=== PATIENT | female | born 1950 | race Caucasian/White ===

== ENCOUNTER 2023-10-18 13:55 | Emergency (ER) | payer MEDICARE, SELFPAY ==
[2023-10-18] VITALS (45 sets, daily range): BP systolic 82–137; BP diastolic 48–86; PULSE 49–76; RESP 12–18; TEMP 36.1–36.7; O2SAT 89–98; BMI 27.4
--- NOTE | 2023-10-18 14:27 | CRLHL7_ITS ---
For Patients: As a result of the Century Cures Act, medical imaging exams and procedure reports are released immediately into your electronic medical record. You may view this report before your referring provider. If you have questions, please contact your health care provider. INDICATION: Chest pain. TECHNIQUE: Chest 1 views. COMPARISON: None. FINDINGS: Cardiovascular and mediastinum: Cardiomegaly. Tortuous aorta. Lungs and pleural spaces: Lungs are clear. No sign of infiltrate or mass. No sign of pleural effusion. No pneumothorax. Bones and soft tissues: No significant findings. IMPRESSION: Cardiomegaly. No acute or significant findings. Dictated by Blake Grajeda MD @ 10/18/2023 3:14:55 PM (Electronically Signed)
[2023-10-18 14:43] LABS: Basophils Absolute Auto 0.03 K/uL (0.00-0.30); Basophils Percent Auto 0.6 % (0.0-3.0); Eosinophils Absolute Auto 0.08 K/uL (0.00-0.50); Eosinophils Percent Auto 1.7 % (0.0-7.0); Hematocrit 27.5 % (33.0-51.0); Immature Granulocytes Abs Auto 0.01 K/uL (0.00-0.30); Immature Granulocytes Pct Auto 0.2 %; Lymphocytes Absolute Auto 1.54 K/uL (0.90-2.90); Lymphocytes Percent Auto 32.6 % (20-44); Mean Corpuscular HGB Conc 33 gm/dL (32-36); Mean Corpuscular Hemoglobin 33 pg (26-34); Mean Corpuscular Volume 101 fL (80-100); Monocytes Percent Auto 8.1 % (0.0-11.0); Neutrophils Absolute Auto 2.68 K/uL (1.7-7.0); Neutrophils Percent Auto 56.8 % (42.0-72.0); Platelet Count* 357 K/uL (140-440); RDW Coefficient of Variation % 13.4 % (11.5-15.5); Red Blood Count 2.73 m/uL (4.00-5.20); White Blood Count* 4.72 K/uL (4.50-11.00)
[2023-10-18 14:59] LABS: Albumin* 4.1 g/dL (3.3-5.0); Chloride* 102 mmol/L (96-114)
[2023-10-18 15:00] LABS: Potassium* 3.7 mmol/L (3.6-5.1); Slide Review Reflex No; Sodium* 133 mmol/L (135-149)
[2023-10-18 15:02] LABS: Alkaline Phosphatase* 68 U/L (40-150); Anion Gap 5 mEq/L (7-15); Aspartate Amino Transferase* 22 U/L (12-35); Bilirubin Direct* 0.3 mg/dL (0.0-0.5); Bilirubin Total* 0.5 mg/dL (0.1-1.5); Blood Urea Nitrogen* 11 mg/dL (7-30); Carbon Dioxide* 26 mmol/L (20-32); Creatinine* 0.8 mg/dL (0.5-1.5); Est. Creatinine Clearance* 52.05; Estimated Glomerular Filt Rate 79 ml/min; Total Protein* 6.2 g/dL (6.0-8.3)
[2023-10-18 15:03] LABS: Alanine Aminotransferase* 18 U/L (4-35); Glucose* 110 mg/dL (60-115); Magnesium* 1.9 mg/dL (1.5-2.6)
[2023-10-18] MEDS: 0.9 % SODIUM CHLORIDE 1000 ml 1,000 ML IV (15:11)
[2023-10-18 15:15] LABS: C Reactive Protein* < 0.5 mg/dL (0.5-1.0); NT Pro B Type NatriureticPept* 186 pg/mL
[2023-10-18 15:49] LABS: D Dimer Quantitative* 0.86 ug/ml (0.00-0.50)
[2023-10-18] MEDS: ASPIRIN 81 MG TAB.CHEW 324 MG PO (15:49)
[2023-10-18 16:15] LABS: Fecal Occult Blood* Negative (Negative)
[2023-10-18 16:55] LABS: Basophils Percent Auto 0.3 % (0.0-3.0); Eosinophils Percent Auto 1.1 % (0.0-7.0); Hematocrit 24.2 % (33.0-51.0); Lymphocytes Percent Auto 35.7 % (20-44); Mean Corpuscular HGB Conc 33 gm/dL (32-36); Mean Corpuscular Hemoglobin 33 pg (26-34); Mean Corpuscular Volume 102 fL (80-100); Monocytes Percent Auto 6.5 % (0.0-11.0); Neutrophils Percent Auto 56.4 % (42.0-72.0); Platelet Count* 283 K/uL (140-440); RDW Coefficient of Variation % 13.6 % (11.5-15.5); Red Blood Count 2.37 m/uL (4.00-5.20); White Blood Count* 3.67 K/uL (4.50-11.00)
[2023-10-18 16:58] LABS: Hemoglobin* 7.9 gm/dL (12.0-16.0)
--- NOTE | 2023-10-18 17:05 | ED.GENADULT ---
HPI - General Adult General Date Seen: 10/18/23 <Erica Ceja MD - Last Filed: 10/21/23 08:03> Chief complaint: Chest Pain <Erica Ceja MD - Last Filed: 10/21/23 08:03> Stated complaint: High chest pain, dizzy, diff breath, colonoscopy <Erica Ceja MD - Last Filed: 10/21/23 08:03> Time Seen by Provider: 10/18/23 14:15 <Erica Ceja MD - Last Filed: 10/21/23 08:03> Source: patient <Erica Ceja MD - Last Filed: 10/21/23 08:03> Mode of arrival: ambulatory <Erica Ceja MD - Last Filed: 10/21/23 08:03> Limitations: no limitations <Erica Ceja MD - Last Filed: 10/21/23 08:03> History of Present Illness HPI narrative: Patient is a 73-year-old woman here for evaluation of chest pain, dizziness and shortness of breath. She notes that a week ago she had a colonoscopy and had 9 biopsies. After the colonoscopy she says that she had about 5 days of bright red blood per rectum associated with clots. Starting the day after the procedure, she started to get this tightness in her upper chest with ambulation. She says she feels okay at rest although she still feels kind of dizzy at rest. The chest pain has consistently shown up however any time she tries to walk. This is new for her, she has no prior history of any cardiac symptoms or diagnoses. She has never had a stress test, stent, mi or surgery. She has not had palpitations, she has not fainted. The blood per rectum seems to have stopped and she has had some normal bowel movements since then. She has not had abdominal pain or vomiting. She has not had pleuritic chest pain, no fever cough, no unusual leg pain or swelling. She does not smoke. She has a 66-year-old brother who a few years ago had a stent. <Erica Ceja MD - Last Filed: 10/21/23 08:03> Related Data Home medications: Home Medications ?Medication ?Instructions ?Recorded ?Confirmed amlodipine 5 mg tablet 5 mg PO DAILY 10/18/23 10/18/23 hydrochlorothiazide 25 mg tablet 25 mg PO DAILY 10/18/23 10/18/23 levothyroxine 125 mcg tablet 125 mcg PO DAILY 10/18/23 10/18/23 (Euthyrox) lisinopril 40 mg tablet 40 mg PO DAILY 10/18/23 10/18/23 <Erica Ceja MD - Last Filed: 10/21/23 08:03> Allergies/adverse reactions: Allergies Allergy/AdvReac Type Severity Reaction Status Date / Time No Known Drug Allergies Allergy Verified 10/18/23 14:04 <Erica Ceja MD - Last Filed: 10/21/23 08:03> Review of Systems Status of ROS: Reports: 10 or more systems reviewed and unremarkable except as noted in History and below <Erica Ceja MD - Last Filed: 10/21/23 08:03> [facility] Social History: Social History Smoking Status: Never smoker How often do you have a drink containing alcohol: 4 or more times a week How many standard drinks containing alcohol do you have on a typical day: 3 or 4 How often do you have six or more drinks on one occasion: Never AUDIT-C Alcohol total score: 5 Non-prescribed substance use: denies use <Erica Ceja MD - Last Filed: 10/21/23 08:03> Exam Narrative: Exam Narrative: Vital signs as noted above. In general, an alert, well-appearing patient. Head: Normocephalic, atraumatic. Eyes: Pupils are equal reactive. Extraocular movements are full. Conjunctivae are normal. ENT: Mucous membranes are moist. Throat is normal. Neck: Supple without lymphadenopathy. Heart: Regular rate and rhythm. No murmur or rub. Lungs: Clear bilaterally. No increased work of breathing, crackles or wheezes. Abdomen: Soft and nontender. No organomegaly. Rectal: No masses, small amount of stool in the vault, dark brown in color. Extremities: Well perfused. No edema. No calf tenderness. Pulses intact. Neurologic: Patient is alert and oriented to person and place. Speech is fluent. Face is symmetric. Moves all extremities equally. Affect: Normal. Skin: Warm and dry. Well perfused. <Erica Ceja MD - Last Filed: 10/21/23 08:03> Const: Vital Signs, click to edit/add: Vital Signs - 24 hr 10/18/23 13:59 10/18/23 14:27 10/18/23 14:37 Temperature 97.0 F L Pulse Rate 71 Pulse Rate [Right Pulse Oximeter] 75 Respiratory Rate 18 Blood Pressure 101/67 Blood Pressure [Ri ght Upper Arm] 124/72 Pulse Oximetry 97 98 98 Oxygen Delivery Me thod Room Air 10/18/23 15:02 10/18/23 15:03 10/18/23 15:07 Temperature Pulse Rate 76 71 56 L Pulse Rate [Right Pulse Oximeter] Respiratory Rate Blood Pressure 82/58 L 83/60 L 82/57 L Blood Pressure [Ri ght Upper Arm] Pulse Oximetry 96 98 97 Oxygen Delivery Me thod 10/18/23 15:10 10/18/23 15:15 10/18/23 15:16 Temperature Pulse Rate 61 56 L 56 L Pulse Rate [Right Pulse Oximeter] Respiratory Rate Blood Pressure 91/56 L 83/58 L Blood Pressure [Ri ght Upper Arm] Pulse Oximetry 97 97 95 Oxygen Delivery Me thod 10/18/23 15:30 10/18/23 15:32 10/18/23 15:36 Temperature Pulse Rate 59 L 53 L 58 L Pulse Rate [Right Pulse Oximeter] Respiratory Rate Blood Pressure 101/64 111/70 Blood Pressure [Ri ght Upper Arm] Pulse Oximetry 95 98 89 Oxygen Delivery Me thod 10/18/23 15:37 10/18/23 15:45 10/18/23 15:50 Temperature Pulse Rate 53 L 50 L Pulse Rate [Right Pulse Oximeter] Respiratory Rate 16 Blood Pressure Blood Pressure [Ri ght Upper Arm] Pulse Oximetry 98 97 Oxygen Delivery Me thod 10/18/23 15:50 10/18/23 16:02 10/18/23 16:17 Temperature Pulse Rate 69 49 L 50 L Pulse Rate [Right Pulse Oximeter] Respiratory Rate Blood Pressure 107/73 113/67 107/78 Blood Pressure [Ri ght Upper Arm] Pulse Oximetry 96 97 98 Oxygen Delivery Me thod 10/18/23 16:25 10/18/23 16:31 10/18/23 17:01 Temperature Pulse Rate 71 57 L Pulse Rate [Right Pulse Oximeter] Respiratory Rate Blood Pressure 112/69 128/86 127/80 Blood Pressure [Ri ght Upper Arm] Pulse Oximetry 97 98 Oxygen Delivery Me thod 10/18/23 17:15 10/18/23 17:32 10/18/23 18:02 Temperature Pulse Rate 52 L Pulse Rate [Right Pulse Oximeter] Respiratory Rate Blood Pressure 110/83 104/72 Blood Pressure [Ri ght Upper Arm] Pulse Oximetry 94 Oxygen Delivery Me thod 10/18/23 18:47 10/18/23 18:48 10/18/23 19:00 Temperature Pulse Rate 61 61 61 Pulse Rate [Right Pulse Oximeter] Respiratory Rate Blood Pressure 120/75 Blood Pressure [Ri ght Upper Arm] Pulse Oximetry 97 95 96 Oxygen Delivery Me thod 10/18/23 19:15 10/18/23 19:30 10/18/23 19:32 Temperature 97.9 F Pulse Rate 60 56 L 55 L Pulse Rate [Right Pulse Oximeter] Respiratory Rate 16 Blood Pressure 110/70 110/70 Blood Pressure [Ri ght Upper Arm] Pulse Oximetry 94 95 96 Oxygen Delivery Me thod 10/18/23 19:53 10/18/23 19:55 10/18/23 20:02 Temperature 97.6 F Pulse Rate 51 L 54 L 63 Pulse Rate [Right Pulse Oximeter] Respiratory Rate 12 12 Blood Pressure 120/75 120/75 114/73 Blood Pressure [Ri ght Upper Arm] Pulse Oximetry 98 95 92 Oxygen Delivery Me thod 10/18/23 20:30 10/18/23 20:37 10/18/23 20:38 Temperature 97.7 F 97.7 F Pulse Rate 60 51 L 51 L Pulse Rate [Right Pulse Oximeter] Respiratory Rate 12 12 Blood Pressure 133/75 133/75 Blood Pressure [Ri ght Upper Arm] Pulse Oximetry 98 98 98 Oxygen Delivery Me thod 10/18/23 20:39 10/18/23 20:45 10/18/23 21:02 Temperature Pulse Rate 55 L 55 L 55 L Pulse Rate [Right Pulse Oximeter] Respiratory Rate Blood Pressure 133/75 123/48 L Blood Pressure [Ri ght Upper Arm] Pulse Oximetry 95 95 97 Oxygen Delivery Me thod 10/18/23 21:15 10/18/23 21:32 07/03/24 21:33 Temperature Pulse Rate 51 L 54 L 51 L Pulse Rate [Right Pulse Oximeter] Respiratory Rate Blood Pressure 128/71 Blood Pressure [Ri ght Upper Arm] Pulse Oximetry 96 96 90 Oxygen Delivery Me thod 10/18/23 21:38 10/18/23 21:41 Temperature 98.0 F Pulse Rate 53 L 51 L Pulse Rate [Right Pulse Oximeter] Respiratory Rate 12 12 Blood Pressure 123/78 123/78 Blood Pressure [Ri ght Upper Arm] Pulse Oximetry 98 96 Oxygen Delivery Me thod <Erica Ceja MD - Last Filed: 10/21/23 08:03> Vital Signs, click to edit/add: Vital Signs - 24 hr 10/18/23 13:59 10/18/23 14:27 10/18/23 14:37 Temperature 97.0 F L Pulse Rate 71 Pulse Rate [Right Pulse Oximeter] 75 Respiratory Rate 18 Blood Pressure 101/67 Blood Pressure [Ri ght Upper Arm] 124/72 Pulse Oximetry 97 98 [facility] 10/18/23 15:02 10/18/23 15:03 10/18/23 15:07 Temperature Pulse Rate 76 71 56 L Pulse Rate [Right Pulse Oximeter] Respiratory Rate Blood Pressure 82/58 L 83/60 L 82/57 L Blood Pressure [Ri ght Upper Arm] Pulse Oximetry 96 98 97 [facility] 10/18/23 15:10 10/18/23 15:15 10/18/23 15:16 Temperature Pulse Rate 61 56 L 56 L Pulse Rate [Right Pulse Oximeter] Respiratory Rate Blood Pressure 91/56 L 83/58 L Blood Pressure [Ri ght Upper Arm] Pulse Oximetry 97 97 95 [facility] 10/18/23 15:30 10/18/23 15:32 10/18/23 15:36 Temperature Pulse Rate 59 L 53 L 58 L Pulse Rate [Right Pulse Oximeter] Respiratory Rate Blood Pressure 101/64 111/70 Blood Pressure [Ri ght Upper Arm] Pulse Oximetry 95 98 89 Oxygen Delivery Ma thod 10/18/23 15:37 10/18/23 15:45 10/18/23 15:50 Temperature Pulse Rate 53 L 50 L Pulse Rate [Right Pulse Oximeter] Respiratory Rate 16 Blood Pressure Blood Pressure [Ri ght Upper Arm] Pulse Oximetry 98 97 [facility] 10/18/23 15:50 10/18/23 16:02 10/18/23 16:17 Temperature Pulse Rate 69 49 L 50 L Pulse Rate [Right Pulse Oximeter] Respiratory Rate Blood Pressure 107/73 113/67 107/78 Blood Pressure [Ri ght Upper Arm] Pulse Oximetry 96 97 98 Oxygen Delivery Me thod 10/18/23 16:25 10/18/23 16:31 10/18/23 17:01 Temperature Pulse Rate 71 57 L Pulse Rate [Right Pulse Oximeter] Respiratory Rate Blood Pressure 112/69 128/86 127/80 Blood Pressure [Ri ght Upper Arm] Pulse Oximetry 97 98 Oxygen Delivery Me thod 10/18/23 17:15 10/18/23 17:32 10/18/23 18:02 Temperature Pulse Rate 52 L Pulse Rate [Right Pulse Oximeter] Respiratory Rate Blood Pressure 110/83 104/72 Blood Pressure [Ri ght Upper Arm] Pulse Oximetry 94 Oxygen Delivery Ma thod 10/18/23 18:47 10/18/23 18:48 10/18/23 19:00 Temperature Pulse Rate 61 61 61 Pulse Rate [Right Pulse Oximeter] Respiratory Rate Blood Pressure 120/75 Blood Pressure [Ri ght Upper Arm] Pulse Oximetry 97 95 96 Oxygen Delivery Ma thod 10/18/23 19:15 10/18/23 19:30 10/18/23 19:32 Temperature 97.9 F Pulse Rate 60 56 L 55 L Pulse Rate [Right Pulse Oximeter] Respiratory Rate 16 Blood Pressure 110/70 110/70 Blood Pressure [Ri ght Upper Arm] Pulse Oximetry 94 95 96 Oxygen Delivery Ma thod 10/18/23 19:53 10/18/23 19:55 10/18/23 20:02 Temperature 97.6 F Pulse Rate 51 L 54 L 63 Pulse Rate [Right Pulse Oximeter] Respiratory Rate 12 12 Blood Pressure 120/75 120/75 114/73 Blood Pressure [Ri ght Upper Arm] Pulse Oximetry 98 95 92 Oxygen Delivery Ma thod 10/18/23 20:30 10/18/23 20:37 10/18/23 20:38 Temperature 97.7 F 97.7 F Pulse Rate 60 51 L 51 L Pulse Rate [Right Pulse Oximeter] Respiratory Rate 12 12 Blood Pressure 133/75 133/75 Blood Pressure [Ri ght Upper Arm] Pulse Oximetry 98 98 98 Oxygen Delivery Me thod 10/18/23 20:39 10/18/23 20:45 10/18/23 21:02 Temperature Pulse Rate 55 L 55 L 55 L Pulse Rate [Right Pulse Oximeter] Respiratory Rate Blood Pressure 133/75 123/48 L Blood Pressure [Ri ght Upper Arm] Pulse Oximetry 95 95 97 Oxygen Delivery Me thod 10/18/23 21:15 10/18/23 21:32 10/18/23 21:33 Temperature Pulse Rate 51 L 54 L 51 L Pulse Rate [Right Pulse Oximeter] Respiratory Rate Blood Pressure 128/71 Blood Pressure [Ri ght Upper Arm] Pulse Oximetry 96 96 90 Oxygen Delivery Me thod 10/18/23 21:38 10/18/23 21:41 Temperature 98.0 F Pulse Rate 53 L 51 L Pulse Rate [Right Pulse Oximeter] Respiratory Rate 12 12 Blood Pressure 123/78 123/78 Blood Pressure [Ri ght Upper Arm] Pulse Oximetry 98 96 Oxygen Delivery Me thod <Luis E Michelle MD - Last Filed: 10/18/23 21:52> Course Course ED Course: Following initial evaluation, patient had an EKG. By my review this shows a sinus rhythm, ventricular rate of 89. Poor R-wave progression. No acute ST segment changes an unremarkable T-waves. An IV was placed. She did have some blood pressures that were low in the 80s and 90s and she had a L of normal saline. Fecal occult blood was negative, but certainly sounds as if she had significant blood loss last week. Labs are notable for an initial hemoglobin of 9. Initial troponin was 0. Metabolic panel fairly unremarkable, sodium is 133, BUN creatinine are normal. LFTs unremarkable, CRP less than 0.5. TSH was 1.2. Her D-dimer was mildly elevated for age at 0.86, however my suspicion for pulmonary embolism is quite low, her symptoms are very much exertional, and started after GI blood loss. I do think it is possible this represents angina, possibly unmasked by her acute anemia. It is reassuring that she is not having any current GI blood loss. Will check a 2 hour troponin. Her heart score is 5 placing her in the moderate risk category. I have discussed all this with her, tomorrow is a holiday, and then it is the weekend, we are not going to be able to get a stress test as an inpatient. After fluids, her hemoglobin is 7.9. I discussed possible transfusion with her, I do think if she has some underlying cardiac disease this would be beneficial for her, particularly given that she would prefer to be discharged. We reviewed risks and benefits of transfusion, she ultimately agreed to proceed with that. Plan will be for transfusion of a unit of blood, recheck troponin at 2 hours and 4 hours, and if this remains undetectable, will assess whether not she is still symptomatic with ambulation. If so, would push for admission. Case discussed with Dr. Pabon, Cardiology at [facility], who agrees that if she remains symptomatic with exertion despite transfusion, she should be heparinized and admitted. If her symptoms are resolved after unit of blood that I think she could conceivably go home with close outpatient follow-up and stress testing. <Erica Ceja MD - Last Filed: 10/21/23 08:03> Vital Signs Vital signs: Initial Vital Signs Temperature 97.0 F L 10/18/23 13:59 Temperature Source Temporal Artery Scan 10/18/23 13:59 Pulse Rate 75 10/18/23 13:59 Respiratory Rate 18 10/18/23 13:59 Blood Pressure 124/72 10/18/23 13:59 Blood Pressure Mean 89 10/18/23 13:59 Blood Pressure Position Sitting 10/18/23 13:59 Pulse Oximetry 97 10/18/23 13:59 Oxygen Delivery Method Room Air 10/18/23 13:59 Vital Signs Temperature 97.0 F L 10/18/23 13:59 Pulse Rate 75 10/18/23 13:59 Respiratory Rate 18 10/18/23 13:59 Blood Pressure 124/72 10/18/23 13:59 Pulse Oximetry 97 10/18/23 13:59 Oxygen Delivery Method Room Air 10/18/23 13:59 Temperature 97.6 F 10/18/23 22:08 Pulse Rate 58 L 10/18/23 22:08 Respiratory Rate 12 10/18/23 22:08 Blood Pressure 137/80 10/18/23 22:08 Pulse Oximetry 96 10/18/23 22:08 Oxygen Delivery Method Room Air 10/18/23 13:59 <Erica Ceja MD - Last Filed: 10/21/23 08:03> Initial Vital Signs Temperature 97.0 F L 10/18/23 13:59 Temperature Source Temporal Artery Scan 10/18/23 13:59 Pulse Rate 75 10/18/23 13:59 Respiratory Rate 18 10/18/23 13:59 Blood Pressure 124/72 10/18/23 13:59 Blood Pressure Mean 89 10/18/23 13:59 Blood Pressure Position Sitting 10/18/23 13:59 Pulse Oximetry 97 10/18/23 13:59 Oxygen Delivery Method Room Air 10/18/23 13:59 Vital Signs Temperature 97.0 F L 10/18/23 13:59 Pulse Rate 75 10/18/23 13:59 Respiratory Rate 18 10/18/23 13:59 Blood Pressure 124/72 10/18/23 13:59 Pulse Oximetry 97 10/18/23 13:59 Oxygen Delivery Method Room Air 10/18/23 13:59 Temperature 97.6 F 10/18/23 22:08 Pulse Rate 58 L 10/18/23 22:08 Respiratory Rate 12 10/18/23 22:08 Blood Pressure 137/80 10/18/23 22:08 Pulse Oximetry 96 10/18/23 22:08 Oxygen Delivery Method Room Air 10/18/23 13:59 <Luis E Michelle MD - Last Filed: 10/18/23 21:52> Medications Administered Medications: Discontinued Medications Generic Name Dose Route Start Last Admin Trade Name Freq PRN Reason Stop Dose Admin Aspirin 324 mg 10/18/23 14:26 10/18/23 15:49 Aspirin 81 Mg Tab.Chew PO 10/18/23 14:27 324 mg ONCE ONE Administration Sodium Chloride 1,000 mls @ 1,000 mls/hr 10/18/23 15:15 10/18/23 16:35 0.9 % Sodium Chloride 1000 Ml IV 10/18/23 16:14 Infused .Q1H [facility] Infusion <Erica Ceja MD - Last Filed: 10/21/23 08:03> Discontinued Medications Generic Name Dose Route Start Last Admin Trade Name Freq PRN Reason Stop Dose Admin Aspirin 324 mg 10/18/23 14:26 10/18/23 15:49 Aspirin 81 Mg Tab.Chew PO 10/18/23 14:27 324 mg ONCE ONE Administration Sodium Chloride 1,000 mls @ 1,000 mls/hr 10/18/23 15:15 10/18/23 16:35 0.9 % Sodium Chloride 1000 Ml IV 10/18/23 16:14 Infused .Q1H [facility] Infusion <Luis E Michelle MD - Last Filed: 10/18/23 21:52> Medical Decision Making MDM Narrative Medical decision making narrative: Addendum 9:52 p.m.. The patient was able ambulate without any difficulty, without any chest pain or other concern. She will be discharged home per Dr. Guadarrama plan. <Luis E Michelle MD - Last Filed: 10/18/23 21:52> Lab Data Labs: Lab Results 10/18/23 10/18/23 10/18/23 Range/Units 14:20 14:28 15:36 WBC 4.72 (4.50-11.00) K/uL RBC 2.73 L (4.00-5.20) m/uL Hgb 9.0 L (12.0-16.0) gm/dL Hct 27.5 L (33.0-51.0) % MCV 101 H (80-100) fL MCH 33 (26-34) pg MCHC 33 (32-36) gm/dL RDW Coeff of Nuria 13.4 (11.5-15.5) % Plt Count 357 (140-440) K/uL Neut % (Auto) 56.8 (42.0-72.0) % Lymph % (Auto) 32.6 (20-44) % Phelps % (Auto) 8.1 (0.0-11.0) % Eos % (Auto) 1.7 (0.0-7.0) % Baso % (Auto) 0.6 (0.0-3.0) % Neut # (Auto) 2.68 (1.7-7.0) K/uL Lymph # (Auto) 1.54 (0.90-2.90) K/uL Phelps # (Auto) 0.40 (0.00-0.90) K/UL Eos # (Auto) 0.08 (0.00-0.50) K/uL Baso # (Auto) 0.03 (0.00-0.30) K/uL Abs Immat Gran (auto) 0.01 (0.00-0.30) K/uL Imm/Tot Granulo (auto) 0.2 % D-Dimer Quant (PE/DVT) 0.86 H (0.00-0.50) ug/ml Sodium 133 L (135-149) mmol/L Potassium 3.7 (3.6-5.1) mmol/L Chloride 102 (96-114) mmol/L Carbon Dioxide 26 (20-32) mmol/L Anion Gap 5 L (7-15) mEq/L BUN 11 (7-30) mg/dL Creatinine 0.8 (0.5-1.5) mg/dL Estimated Creat Clear 52.05 Estimated GFR 79 ml/min Glucose 110 (60-115) mg/dL Calcium 10.0 (8.4-10.6) mg/dL Magnesium 1.9 (1.5-2.6) mg/dL Total Bilirubin 0.5 (0.1-1.5) mg/dL Direct Bilirubin 0.3 (0.0-0.5) mg/dL AST 22 (12-35) U/L ALT 18 (4-35) U/L Alkaline Phosphatase 68 (40-150) U/L Troponin I (0.01-0.04) ng/mL C-Reactive Protein < 0.5 L (0.5-1.0) mg/dL NT-Pro-B Natriuret Pep 186 pg/mL Total Protein 6.2 (6.0-8.3) g/dL Albumin 4.1 (3.3-5.0) g/dL TSH 1.280 (0.270-4.200) uIU/mL Stool Occult Blood Negative (Negative) POC Troponin I 0.00 L (0.01-0.04) ng/ml Blood Type Antibody Screen Crossmatch (AHG) 10/18/23 10/18/23 Range/Units 16:48 20:30 WBC 3.67 L (4.50-11.00) K/uL RBC 2.37 L (4.00-5.20) m/uL Hgb 7.9 L* (12.0-16.0) gm/dL Hct 24.2 L (33.0-51.0) % MCV 102 H (80-100) fL MCH 33 (26-34) pg MCHC 33 (32-36) gm/dL RDW Coeff of Nuria 13.6 (11.5-15.5) % Plt Count 283 (140-440) K/uL Neut % (Auto) 56.4 (42.0-72.0) % Lymph % (Auto) 35.7 (20-44) % Phelps % (Auto) 6.5 (0.0-11.0) % Eos % (Auto) 1.1 (0.0-7.0) % Baso % (Auto) 0.3 (0.0-3.0) % Neut # (Auto) 2.10 (1.7-7.0) K/uL Lymph # (Auto) 1.30 (0.90-2.90) K/uL Phelps # (Auto) 0.20 (0.00-0.90) K/UL Eos # (Auto) 0.00 (0.00-0.50) K/uL Baso # (Auto) 0.00 (0.00-0.30) K/uL Abs Immat Gran (auto) 0.00 (0.00-0.30) K/uL Imm/Tot Granulo (auto) 0.0 % D-Dimer Quant (PE/DVT) (0.00-0.50) ug/ml Sodium (135-149) mmol/L Potassium (3.6-5.1) mmol/L Chloride (96-114) mmol/L Carbon Dioxide (20-32) mmol/L Anion Gap (7-15) mEq/L BUN (7-30) mg/dL Creatinine (0.5-1.5) mg/dL Estimated Creat Clear Estimated GFR ml/min Glucose (60-115) mg/dL Calcium (8.4-10.6) mg/dL Magnesium (1.5-2.6) mg/dL Total Bilirubin (0.1-1.5) mg/dL Direct Bilirubin (0.0-0.5) mg/dL AST (12-35) U/L ALT (4-35) U/L Alkaline Phosphatase (40-150) U/L Troponin I < 0.01 L < 0.01 L (0.01-0.04) ng/mL C-Reactive Protein (0.5-1.0) mg/dL NT-Pro-B Natriuret Pep pg/mL Total Protein (6.0-8.3) g/dL Albumin (3.3-5.0) g/dL TSH (0.270-4.200) uIU/mL Stool Occult Blood (Negative) POC Troponin I (0.01-0.04) ng/ml Blood Type O Positive Antibody Screen NEGATIVE Crossmatch (AHG) See Detail <Erica Ceja MD - Last Filed: 10/21/23 08:03> Lab Results 10/18/23 10/18/23 10/18/23 Range/Units 14:20 14:28 15:36 WBC 4.72 (4.50-11.00) K/uL RBC 2.73 L (4.00-5.20) m/uL Hgb 9.0 L (12.0-16.0) gm/dL Hct 27.5 L (33.0-51.0) % MCV 101 H (80-100) fL MCH 33 (26-34) pg MCHC 33 (32-36) gm/dL RDW Coeff of Nuria 13.4 (11.5-15.5) % Plt Count 357 (140-440) K/uL Neut % (Auto) 56.8 (42.0-72.0) % Lymph % (Auto) 32.6 (20-44) % Phelps % (Auto) 8.1 (0.0-11.0) % Eos % (Auto) 1.7 (0.0-7.0) % Baso % (Auto) 0.6 (0.0-3.0) % Neut # (Auto) 2.68 (1.7-7.0) K/uL Lymph # (Auto) 1.54 (0.90-2.90) K/uL Phelps # (Auto) 0.40 (0.00-0.90) K/UL Eos # (Auto) 0.08 (0.00-0.50) K/uL Baso # (Auto) 0.03 (0.00-0.30) K/uL Abs Immat Gran (auto) 0.01 (0.00-0.30) K/uL Imm/Tot Granulo (auto) 0.2 % D-Dimer Quant (PE/DVT) 0.86 H (0.00-0.50) ug/ml Sodium 133 L (135-149) mmol/L Potassium 3.7 (3.6-5.1) mmol/L Chloride 102 (96-114) mmol/L Carbon Dioxide 26 (20-32) mmol/L Anion Gap 5 L (7-15) mEq/L BUN 11 (7-30) mg/dL Creatinine 0.8 (0.5-1.5) mg/dL Estimated Creat Clear 52.05 Estimated GFR 79 ml/min Glucose 110 (60-115) mg/dL Calcium 10.0 (8.4-10.6) mg/dL Magnesium 1.9 (1.5-2.6) mg/dL Total Bilirubin 0.5 (0.1-1.5) mg/dL Direct Bilirubin 0.3 (0.0-0.5) mg/dL AST 22 (12-35) U/L ALT 18 (4-35) U/L Alkaline Phosphatase 68 (40-150) U/L Troponin I (0.01-0.04) ng/mL C-Reactive Protein < 0.5 L (0.5-1.0) mg/dL NT-Pro-B Natriuret Pep 186 pg/mL Total Protein 6.2 (6.0-8.3) g/dL Albumin 4.1 (3.3-5.0) g/dL TSH 1.280 (0.270-4.200) uIU/mL Stool Occult Blood Negative (Negative) POC Troponin I 0.00 L (0.01-0.04) ng/ml Blood Type Antibody Screen Crossmatch (AHG) 10/18/23 10/18/23 Range/Units 16:48 20:30 WBC 3.67 L (4.50-11.00) K/uL RBC 2.37 L (4.00-5.20) m/uL Hgb 7.9 L* (12.0-16.0) gm/dL Hct 24.2 L (33.0-51.0) % MCV 102 H (80-100) fL MCH 33 (26-34) pg MCHC 33 (32-36) gm/dL RDW Coeff of Nuria 13.6 (11.5-15.5) % Plt Count 283 (140-440) K/uL Neut % (Auto) 56.4 (42.0-72.0) % Lymph % (Auto) 35.7 (20-44) % Phelps % (Auto) 6.5 (0.0-11.0) % Eos % (Auto) 1.1 (0.0-7.0) % Baso % (Auto) 0.3 (0.0-3.0) % Neut # (Auto) 2.10 (1.7-7.0) K/uL Lymph # (Auto) 1.30 (0.90-2.90) K/uL Phelps # (Auto) 0.20 (0.00-0.90) K/UL Eos # (Auto) 0.00 (0.00-0.50) K/uL Baso # (Auto) 0.00 (0.00-0.30) K/uL Abs Immat Gran (auto) 0.00 (0.00-0.30) K/uL Imm/Tot Granulo (auto) 0.0 % D-Dimer Quant (PE/DVT) (0.00-0.50) ug/ml Sodium (135-149) mmol/L Potassium (3.6-5.1) mmol/L Chloride (96-114) mmol/L Carbon Dioxide (20-32) mmol/L Anion Gap (7-15) mEq/L BUN (7-30) mg/dL Creatinine (0.5-1.5) mg/dL Estimated Creat Clear Estimated GFR ml/min Glucose (60-115) mg/dL Calcium (8.4-10.6) mg/dL Magnesium (1.5-2.6) mg/dL Total Bilirubin (0.1-1.5) mg/dL Direct Bilirubin (0.0-0.5) mg/dL AST (12-35) U/L ALT (4-35) U/L Alkaline Phosphatase (40-150) U/L Troponin I < 0.01 L < 0.01 L (0.01-0.04) ng/mL C-Reactive Protein (0.5-1.0) mg/dL NT-Pro-B Natriuret Pep pg/mL Total Protein (6.0-8.3) g/dL Albumin (3.3-5.0) g/dL TSH (0.270-4.200) uIU/mL Stool Occult Blood (Negative) POC Troponin I (0.01-0.04) ng/ml Blood Type O Positive Antibody Screen NEGATIVE Crossmatch (AHG) See Detail <Luis E Michelle MD - Last Filed: 10/18/23 21:52> Discharge Plan Discharge Clinical Impression: Chest pain, Anemia, History of GI bleed <Erica Ceja MD - Last Filed: 10/21/23 08:03> Patient Disposition: Home, Self-Care <Erica Ceja MD - Last Filed: 10/21/23 08:03> Condition: Improved <Erica Ceja MD - Last Filed: 10/21/23 08:03> Instructions: Chest Pain (DC), Anemia (ED) <Erica Ceja MD - Last Filed: 10/21/23 08:03> Additional Instructions: If you have any escalation your symptoms, pain at rest, pain that does not resolve with rest, recurrent bleeding, lightheadedness or fainting, or any other worsening, return immediately to the emergency department by 911. Otherwise, we will arrange for an outpatient stress test. You should follow-up with your [facility] provider following the stress test to discuss results. <Erica Ceja MD - Last Filed: 10/21/23 08:03> Prescriptions: No Action lisinopril 40 mg tablet 40 mg PO DAILY hydrochlorothiazide 25 mg tablet 25 mg PO DAILY levothyroxine [Euthyrox] 125 mcg tablet 125 mcg PO DAILY amlodipine 5 mg tablet 5 mg PO DAILY <Erica Ceja MD - Last Filed: 10/21/23 08:03> Follow Up/Referrals: Katie Perrin, [Primary Care Provider] - <Erica Ceja MD - Last Filed: 10/21/23 08:03> Stand Alone Forms: [employer] [facility] Info Instructions <Erica Ceja MD - Last Filed: 10/21/23 08:03>
[2023-10-18 17:35] LABS: Troponin I* < 0.01 ng/mL (0.01-0.04)
[2023-10-18 21:28] LABS: Troponin I* < 0.01 ng/mL (0.01-0.04)
[2023-10-19 05:01] LABS: Slide Review Reflex No
== END 2023-10-18 22:19 | disposition home or self-care (01) ==
PROVIDERS: Emergency Provider Emergency Medicine; PCP Family Medicine
DX: R07.9 Chest pain, unspecified (principal); D64.9 Anemia, unspecified
CPT/HCPCS: 36415; 36430; 71045; 80048; 80076; 82270; 83735; 83880; 84443; 84484; 85025; 85379; 86140; 86850; 86900; 86901; 86922; 93005; 94761; 99284; 99285; A9270; J7030; P9016

== ENCOUNTER 2023-10-24 08:45 | Outpatient (CLI) | payer MEDICARE, SELFPAY ==
[2023-10-24] MEDS: SODIUM CHLORIDE 0.9 % (FLUSH) 10 ML SYRINGE IVF (10:04)
[2023-10-24] MEDS: REGADENOSON 0.4 MG/5 ML SYRINGE IVP (10:04)
[2023-10-24 10:56] VITALS: BP 164/89; PULSE 67
--- NOTE | 2023-10-24 11:09 | P.STN_ITS ---
Stress Test Note Date Date Seen: 10/24/23 Date of test: 10/24/23 Providers Referring provider: Erica Ceja Primary care provider: Katie Perrin Stress test physician: Helena Hardy Stress Test Note Stress test ordered: Lexiscan Indication for test: Exertional chest pain Stress test medicine: Lexiscan Results discussion: Resting EKG: Sinus rhythm, 60 beats per minute. Significant artifact. Premature atrial complex seen. Resting blood pressure: 132/86 Stress test: Patient was consented on stress test ordered in agreed to proceed. She had a nonwalking Lexiscan. Just under 2 minutes in to the testing after administration of the regadenoson, patient started having recurrence of her upper chest pain just below her anterior neck. Pain did improve and was gone by the end of recovery phase. She did have some inferior EKG changes and lateral precordial leads V4 through V6 suggestive but not diagnostic of ischemia. At the termination of the EKG portion of this test, patient had no symptoms, stated she felt better was back to baseline. She did not become hypotensive, had a maximum blood pressure 167/101. Patient will have post stress nuclear images obtained to couple this for a full formal diagnostic. Impression: Subjectively positive, objectively suggestive of inferior ischemia on EKG tracings. Follow up suggested: Patient has not scheduled a post ER follow-up, does need hemoglobin recheck from that. Have requested that she schedule with her primary clinic which is [facility] this week. She can have her hemoglobin rechecked after recent transfusion from acute blood loss and have her stress test report given to her. She is aware to return to the ER if she has further exertional pain that does not go away immediately with rest. She should not stress herself with any activity that should provoke this level of symptoms in the interim.
== END 2023-10-24 08:46 | disposition home or self-care (01) ==
PROVIDERS: PCP Family Medicine; Visit Provider Family Medicine
DX: R07.89 Other chest pain (principal); I25.9 Chronic ischemic heart disease, unspecified
CPT/HCPCS: 78452; 93016; 93017; A9500; J2785

== ENCOUNTER 2024-09-30 13:22 | Emergency (ER) | payer MEDICARE, OTHER, SELFPAY ==
[2024-09-30 13:26] VITALS: BP 150/84; PULSE 95; RESP 16; TEMP 36; O2SAT 95; BMI 25.5
--- OUTSIDE RECORDS SUMMARY | 2024-09-30 13:26 | XMS_ITS | Clinical Summary ---
Author Organization [employer] [facility] Address [address] [place] [id number] Care Team Providers Care White Metal Caster Name Role Phone Katie Perrin DO Primary Care Provider [phone] Allergies Active Allergy Reactions Criticality Noted Date Comments Ciprofloxacin *Unknown 08/23/2024 Avoid fluoroquinolone antibiotics in view of ascending aorta aneurysm Medications nitroglycerin (NITROSTAT) 0.4 mg sublingual tabletIndications: Abnormal stress test,Chest pain in adult Place 1 Tablet (0.4 mg) under the tongue every 5 minutes if needed for Chest Pain. Up to 3 tablets in 15 minutes. 25 Tablet 4 Active furosemide (LASIX) 20 mg tabletIndications: S/P CABG (coronary artery bypass graft) Take 1 Tablet (20 mg) by mouth once daily in the morning. 90 Tablet 3 4 Active rosuvastatin (CRESTOR) 20 mg tabletIndications: Hyperlipidemia, unspecified hyperlipidemia type Take 1 Tablet (20 mg) by mouth at bedtime. 90 Tablet 3 5 Active levothyroxine (SYNTHROID) 125 mcg tabletIndications: Hypothyroidism, unspecified type Take 1 Tablet (125 mcg) by mouth once daily. 90 Tablet 3 5 Active aspirin chewable 81 mg chewable tabletIndications: S/P CABG x 3 Chew 1 Tablet (81 mg) by mouth once daily. 100 Tablet 5 5 Active metoprolol succinate (Toprol XL) 50 mg sustained-release tabletIndications: Hx of CABG Take 1 Tablet (50 mg) by mouth once daily. 90 Tablet 3 5 Active metoprolol succinate 25 mg Sustained-Release tabletIndications: Hypertension Take 1 Tablet (25 mg) by mouth once daily. 90 Tablet 5 Active metoprolol succinate (TOPROL XL) 25 mg Sustained-Release tabletIndications: Ischemic cardiomyopathy Take 1 Tablet (25 mg) by mouth once daily. 30 Tablet 1 5 09/24/19 25 Discontin ued(Reord er (E-cancel not sent)) Active Problems Problem Noted Date Diagnosed Date Atrial fibrillation with RVR 01/30/2024 Pleural effusion on left 01/30/2024 S/P CABG x 3 01/02/2024 01/02/2024 Overview (01/02/2024): Coronary artery bypass grafting x 3 (FREIRE-LAD, SVG-PDA, SVG-OM) with Dr. Edwards on 01/02/24 S/P ascending aortic aneurysm repair 01/02/2024 01/02/2024 Overview (01/02/2024): Aorta- GRAFT VASC [id number] VASCUTEK GELWEAVE STRAIGHT BY [employer], Ref:[id number], SN:[id number], Exp:09-14-2026, implanted by Dr. Edwards on 01-02-2024 Coagulopathy 01/02/2024 ASHD (arteriosclerotic heart disease) 12/29/2023 Overview (12/29/2023): - 10/24/23 NM Stress Test: Myocardial perfusion was abnormal. There was a small area of moderate ischemia involving the apical segments. - 11/28/23 CCTA: 1) Significant ASCVD - severe stenosis of the proximal LAD (>70%) - moderate disease throughout the RCA with subtotal distal RCA stenosis FFRct* - Distal right coronary artery SOUND MIXER. - No significant flow limitation at the significantly stenosed proximal LAD stenosis. - Lateral diagonal branch FFR abnormality also noted - angiogram 12/29/23 Urinary incontinence 11/27/2023 Colon polyp 10/16/2023 Overview (10/16/2023): Colonoscopy 09/2023 4-TA, repeat in 5 years PAC (premature atrial contraction) 10/20/2022 Overview (10/20/2022): Every about 6 beats at rest seen on EKG Primary osteoarthritis of left knee 07/24/2020 Overview (07/24/2020): July 2020: Dr. Abernathy cortisone injection to left knee. Chronic pain of right ankle 07/24/2020 Overview (07/24/2020): 2014L: left ankle fusion Surgery. Essential hypertension 04/13/2020 Posterior knee pain, left 08/08/2018 Overview (08/08/2018): July 2018: Dr. Sue ultrasound aspiration of Diehl's cyst and cortisone injection. Routine adult health maintenance 09/17/2013 Overview (09/17/2013): Colonoscopy 09/2013 normal repeat in 10 years Hypothyroid 07/02/2013 Hypertension Resolved Problems Problem Noted Date Diagnosed Date Resolved Date Paroxysmal atrial fibrillation 01/18/2024 02/23/2024 Anticoagulation monitoring, INR range 2-3 01/18/2024 02/23/2024 Acute blood loss anemia 01/02/202406/2023 Abnormal stress test 11/27/2023 025 Encounters Date Type Department Care Team Description 09/23/2024 Refill [facility] [address] [place] [address] Katie Perrin DO Refill Request (Metoprolol ER 25mg TAB) 08/23/2024 3:00 PM CDT Office Visit [facility] [address] [place] [phone] Castillo Higgins MD Follow Up (Follow up CAD ) 08/23/2024 Travel from Last 3 Months Immunizations Immunization Administration Dates Next Due COVID-19 vaccine ([employer] 30mcg/0.3mL) 12YO+ RAGHU-SUCROSE COLIN MOSLEY 09/15/2021 COVID-19 vaccine ([facility] [employer] 30mcg/0.3mL) PF, MDV 06/27/2020,06/06/2020 Influenza, High-dose Inactivated 12/26/2023,03/17 Influenza, High-dose Quadriv alent Inactivated 01/19/2023,03/15/2021 Influenza, IIV3 (Age 6-35 mos) 03/06/2013 Influenza, IIV3 (Age >=3 years) 03/01/2013 Influenza, IIV4 03/16/2016,2015,01/15/2014 Influenza, Inactivated AIIV4 (Age 65+ Years) Preserv Free 01/13/2022,03/13/2020 Influenza, Inactivated IIV3 (Age 65+ Years) Preserv Free 04/02/2018 Pneumococcal Poly,23-Valent (Pneumovax) 04/02/20 18 Pneumococcal conj 13-Valent (Prevnar 13) 016 Td (Age >=7 Years) 04/25/2003 Tdap 09/15/2021,12/03/2011 Zoster (Shingrix-RZV, recombinant) 11/02/2018, Zoster (Zostavax-ZVL, live) 11/06/2013 Family History Medical History Relation Name Comments Cancer Brother Caleb bladder Cancer Father of leukemi a Cancer-breast Mother at age 86 , had CVA Cancer-ovarian No Family History Relation Name Status Comments Brother Caleb Father Mother Social History Tobacco Use Types Packs/Day Years Used Date Smoking Tobacco: Never Passive Smoke Exposure: Never Smokeless Tobacco: Never Tobacco Cessation:Counseling Given: Yes Alcohol Use Standard Drinks/Week Comments Yes 0 (1 standard drink = 0.6 oz pur e alcohol) a beer daily PHQ-2 Answer Date Recorded PHQ-2 TOTAL SCORE 0 05/09/2024 Social Connections Answer Date Recorded Do you often feel lonely or isolated from those around you? 0 01/30/2024 Alcohol Use Answer Date Recorded How often do you have a drink containing alcohol ? 3 04/05/2021 How many drinks containing a lcohol do you have on a typical day when you are drinking? 0 04/05/2021 How often do you have five or more drinks on one occasion? 0 04/05/2021 Financial Resource Strain Answer Date R ecorded Difficulty of Paying Living Expenses 3 05/05/2023 Difficulty of Paying Living Expenses Not on file 05/05/2023 Food Insecurity Answer Date Recorded Do you worry your food will run out before you are able to buy more? 1 01/30/2024 Transportation Needs Answer Date Record ed Does lack of transportation keep you from medica l appointments? 1 01/30/2024 Does lack of transportation keep you from work, meetings or getting things that you need? 1 01/30/2024 Housing Stability Answer Date Recorded What is your housing situation today? 1 01/30/2024 Interpersonal Safety Answer Date Record ed Are you being hit, kicked, p ushed or yelled at (see row info)? No 02/21/2024 Interpersonal Safety Abuse 12 - 18 Not on file 02/21/2024 Interpersonal Safety Ambulatory Vulnerability No t on file 02/21/2024 Utilities Answer Date Recorded Do you have trouble paying f or utilities (for example, heat, electricity, water, phone)? 1 01/30/2024 Comments No Sex and Gender Information Value Date Recorded Sex Assigned at Female 01/30/2024 9:49 AM CDT Legal Sex Female 3:55 PM ADMINISTRATOR PESTICIDE Gender Identity Female 01/30/2024 9:49 AM CDT Sexual Orientation Straight 01/30/2024 9: 49 AM CDT Occupation Industry Job Start Date Job End Date disabled Not on file Not on file Not on file Obstetrics History Last Filed Vital Signs Vital Sign Reading Time Taken Comments Blood Pressure 152/92 08/23/2024 2:45 PM CDT Pulse 83 08/23/2024 2:45 PM CDT Temperature 36.5 C (97.7 F) 02/21/2024 12:49 PM ADMINISTRATOR PESTICIDE Respiratory Rate 16 02/21/2024 12:49 PM ADMINISTRATOR PESTICIDE Oxygen Saturation 95% 08/23/2024 2:45 PM CDT Inhaled Oxygen Concentration - - Weight 77.2 kg (170 lb 1.6 oz) 08/23/2024 2:45 P M CDT Height 171.5 cm (5' 7.52) 04/16/2024 11:[address] Body Mass Index 26.23 04/16/2024 11:28 AM ADMINISTRATOR PESTICIDE Plan of Treatment Health Maintenance Due Date Last Done Comments Hepatitis C screening for age 18-79 1970 RSV vaccine for adults or (1 - Risk 60-74 years 1-dose series) 2012 COVID-19 vaccine series (2023- season) 2024 12/26/2023, 08/08/2023, 01/19/2023, Additional history exists Mammogram for age 45-75 11/26/2024 11/27/19, 10/20/2022, 04/16/2018, Additional history exists Medicare Wellness for age 65+ 11/27/2024 11/27/2023, 10/20/2022, 10/20/2022, Additional history exists BMI (ht and wt on same day) for age 18+ 04/16/2025 04/16/2024, 11/27/2023, 05/05/2023, Additional history exists Depression screening for age 12+ 05/09/2025 05/09/2024, 05/08/2024, 02/02/2024, Additional history exists Colonoscopy through age 75 10/09/202810/09, 10/10/2023, 10/10/2023, Additional history exists Lipids for age 45-75 12/29/2028 12/30/2023, 11/21/2023, 04/19/2023, Additional history exists Tetanus booster 09/16/2031 09/15/2021, 11/15, 04/25/2003 DEXA/DXA scan for age 65+ Completed 03/30/2017 Pneumococcal series for age 50+ Completed 04/02/2018, 03/16/2016 Zoster (shingles) series for age 50+ Completed 11/02/2018, 08/15/2018, 11/06/2013 Tdap Completed 09/15/2021, 12/03/2011 Influenza Vaccine Completed 12/26/2023, , 03/13/2020, Additional history exists Hepatitis B series for 19+ Aged Out N o longer eligible based on patient's age to complete this topic Medical Devices Implanted Type Area Road Worker Device Identifier Shelf Expiration Date Model / Serial / Lot Graft Vasc [id number] [facility] - [id number] Implanted:Qty: 1 on 01/02/2024 by Grace Live, Kristopher Womack MD at [facility] N/A: [employer] 09/14/2026 [id number] / [id number] / Description:Aorta- GRAFT VAS C [id number] VASCUTEK GELWEAVE STRAIGHT BY [employer], Ref:[id number], SN:[id number], Exp:09-14-2026, implanted by Dr. Edwards on 01-02-2024 Procedures Procedure Name Priority Date/Time Associated Diagnosis Comments LIPID PANEL Early AM 12/30/2023 6:51 AM CDT XR MAMMO OPAL BILAT SCREEN Routine 11/27/2023 10:50 AM CDT Visit for screening mammogram COLONOSCOPY SCREENING Routine 10/10/2023 1:14 PM CDT Screening for colon cancer XR DXA BONE DENSITY 2 SITES AXIAL Routine 03/30/2017 9:00 AM ADMINISTRATOR PESTICIDE Menopause from Last 3 Months or Most Recently Relevant to Health Maintenance Results * Lipid Panel - In AM (12/30/2023 6:51 AM CDT) CHOLESTEROL,TOTAL 161 100 - 199 mg/dL 12/30/2023 7:35 AM CDT [facility] Comment: Cholesterol, Total Reference Ranges Desirable <200 mg/dL Borderline 200-239 mg/dL High >=240 mg/dL TRIGLYCERIDES 66 <150 mg/dL 12/30/2023 7:35 AM CDT [facility] HDL CHOLESTEROL 62 >40 mg/dL 7:35 AM CDT [facility] NON-HDL CHOLESTEROL 99 <145 mg/dl 12/30/2023 7:35 AM CDT [facility] CHOL/HDL RATIO 2.60 <4.50 12/30/2023 7:35 AM CDT [facility] LDL CHOLESTEROL 86 <=130 mg/dL 12/30/2023 7:35 AM CDT [facility] VLDL CHOLESTEROL 13 <=30 mg/dL 12/30/2023 7:35 AM CDT [facility] PROVIDER ORDERED STATUS RANDOM 12/30/2023 7:35 AM CDT [facility] Blood BLOOD SPECIMEN / Unknown Venipuncture / Unknown 12/30/2023 6:51 AM CDT 12/30/2023 7:05 AM CDT Hasmukh HEWITTBS CHEMISTRY Jossy l Result [facility] [address] [place] [address], [place] * XR MAMMO OPAL BILAT SCREEN (11/27/2023 10:50 AM CDT) Anatomical Region Laterality Modality BREASTS, Breast Left, Breast Right Bilateral Mammography Impressions 11/27/2023 2:45 PM CDT There is no radiographic evidence for malignancy. Recommend annual mammograms. MAMMOGRAM ASSESSMENT: ACR 1 Negative PATIENTS: You will also receive a letter with your examination results in an easy to read format. If you have questions about your results, please contact your referring provider. Narrative 11/27/2023 2:45 PM CDT For Patients: As a result of the Century Cures Act, medical imaging exams and procedure reports are released immediately into your electronic medical record. You may view this report before your referring provider. If you have questions, please contact your health care provider. XR MAMMO OPAL BILAT SCREEN [[id number]] CLINICAL HISTORY: This is an asymptomatic 73 y.o. patient. INDICATION FOR EXAM: Mammogram Screening. TECHNIQUE: CC & MLO views were obtained. This study was evaluated with the assistance of Computer-Aided Detection. Breast Tomosynthesis was used in interpretation. COMPARISON FILM: Yes 10/20/22 [employer] 04/16/18 [facility] FINDINGS: The breasts are almost entirely fatty. There are no dominant masses, suspicious micro calcifications or areas of architectural distortion. Katie Perrin DO MAMMO Final Resu lt * COLONOSCOPY (10/10/2023 1:26 PM CDT) 10/10/2023 1:26 PM CDT Narrative Transcriptions Anam Mcdermott MD - 10/10/2023 2:55 PM CDT Patient Name: Ignacia Ames Procedure Date: 10/10/2023 Gender: Female Date of : 1950 Admit Type: Outpatient Procedure: Colonoscopy Proceduralist: Anam Mcdermott MD , Ele Lin (Nurse), Sun Beatty RN (Nurse) Referring MD: Katie Perrin Indications/Pre-Op Diagnosis: Screening for colorectal malignant neoplasm, Last colonoscopy: September 2013 Medications: Fentanyl 100 micrograms IV, Midazolam 2 mgIV, The level of sedation administered wasmoderate Procedure Description: The patient had risks, benefits and alternatives explained to andgave informed consent. The patient had a stable cardiopulmonary status and judged an adequate candidate for conscious sedation. The endoscope [id number] was passed through the anus andadvanced to the cecum, identified by appendiceal orifice and ileocecal valve.The colonoscopy was performed without difficulty. The patient toleratedthe procedure well. The quality of the bowel preparation was good. The ileocecal valve, appendiceal orifice, and rectum were photographed. Complications: No immediate complications. Estimated Blood Loss & Specimen: Estimated blood loss: none. Specimen collected - Yes and sent to Laboratory Findings: The perianal and digital rectal examinations were normal. Two sessile and semi-pedunculated polyps were found in the ascending colon. The polyps were 3 to 4 mm in size. These polyps were removedwith a cold snare. Resection and retrieval were complete. A 2 mm polyp was found in the ascending colon. The polyp was sessile. The polyp was removed with a cold biopsy forceps. Resection and retrieval were complete. A 3 mm polyp was found in the transverse colon. The polyp wassessile. The polyp was removed with a cold snare. Resection and retrieval were complete. Two sessile polyps were found in the rectum. The polyps were 2 mm in size. These polyps were removed with a cold snare. Resection was complete, but the polyp tissue was not retrieved. The exam was otherwise without abnormality. Impressions/Post-Op Diagnosis: - Two 3 to 4 mm polyps in the ascending colon, removed with a cold snare. Resected and retrieved. - One 2 mm polyp in the ascending colon, removed with a cold biopsy forceps. Resected and retrieved. - One 3 mm polyp in the transverse colon, removed with a cold snare. Resected and retrieved. - Two 2 mm polyps in the rectum, removed with a cold snare. Complete resection. Polyp tissue not retrieved. - The examination was otherwise normal. Recommendation: - Patient has a contact number available for emergencies. The signsand symptoms of potential delayed complications were discussed with the patient. Return to normal activities tomorrow. Written discharge instructions were provided to the patient. - Resume previous diet. - Continue present medications. - Await pathology results. - Repeat colonoscopy date to be determined after pending pathology results are reviewed for surveillance. Moderate Sedation: A time out was performed before the procedure. Moderate (conscious) sedation was administered by the endoscopy nurse and supervised bythe endoscopist. The following parameters were monitored: oxygensaturation, heart rate, blood pressure, EKG, CO2, respiratory rate, adequacy of pulmonary ventilation and reponse to care. Please refer to the patient's medical record flowsheets and nursing notes for moderate sedation details. Total physician intraservice time was 23 minutes. Anam Mcdermott MD 10/10/2023 2:54:56 PM This report has been signed electronically. Note Initiated On: 10/10/2023 1:26 PM Procedure Code(s): --- Professional --- 66297, Colonoscopy, flexible; with removalof tumor(s), polyp(s), or other lesion(s) bysnare technique 69777, 59, Colonoscopy, flexible; withbiopsy, single or multiple Diagnosis Code(s): --- Professional --- Z12.11, Encounter for screening formalignant neoplasm of colon D12.2, Benign neoplasm of ascending colon D12.8, Benign neoplasm of rectum D12.3, Benign neoplasm of transverse colon (hepatic flexure or splenic flexure) CPT copyright 2022 [employer]. All rights reserved. The codes documented in this report are preliminary and upon industrial court magistrate reviewmay be revised to meet current compliance requirements. Scope In: 2:21:22 PM Scope Withdrawal Time 0 hours 12 minutes 50 seconds Scope Out: 2:41:21 PM us Anam Mcdermott MD PROCEDURE ORD Final Res ult * XR DXA BONE DENSITY 2 SITES AXIAL [78650.1] (03/30/2017 9:00 AM ADMINISTRATOR PESTICIDE) Anatomical Region Laterality Modality Spine, HIPS, HIPL, HIPR Other Narrative 04/04/2017 2:27 PM ADMINISTRATOR PESTICIDE Please see scanned document for results of this study. us Kami Thao DO DEXA Final Resul t from Last 3 Months or Most Recently Relevant to Health Maintenance Insurance MEDICARE PART B HB ONLY MEDICARE PART A HB ONLY MEDICA PRIME SOLUTION HB MEDICA PRIME SOLUTIONS MR PB ONLY HC MEDICARE PPS RISK ADMINISTRATIVE SERVICES Advance Directives * Full Code (Latest Code Status on File) Date Activated Date Inactivated Comments 01/30/2024 4:27 PM 02/04/2024 11:08 PM Would lik e to continue discussion on the topic. 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
--- NOTE | 2024-09-30 14:03 | CRLHL7_ITS ---
For Patients: As a result of the Century Cures Act, medical imaging exams and procedure reports are released immediately into your electronic medical record. You may view this report before your referring provider. If you have questions, please contact your health care provider. INDICATION: Headache, neck pain TECHNIQUE: CT head without contrast. COMPARISON: None. FINDINGS: MASS EFFECT AND VENTRICLES: No significant midline shift. The lateral ventricles are symmetric. Basal cisterns patent. No sulcal effacement. The ventricles, cisterns, and other CSF containing spaces are symmetrically prominent secondary to diffuse parenchymal volume loss but are otherwise normal as to shape and position. BRAIN: Diffuse cerebral volume loss. Periventricular and subcortical hypodensities likely secondary to age-related microvascular ischemic changes. No acute infarct or hemorrhage. VASCULAR: No acute abnormalities of the cavernous carotids and vertebral vessels on noncontrast exam. EXTRA-AXIAL: Extra-axial spaces are normal. Metallic fragments along the superior margin of the left sphenoid sinus, which may be related to prior surgery. EXTRA-CRANIAL: No acute calvarial or facial fractures. Sinuses and mastoids are clear. Bilateral lens replacements. IMPRESSION: No acute intracranial abnormality. Please note that all CT scans at this facility use dose modulation, iterative reconstruction, and/or weight-based dosing when appropriate to reduce radiation dose to as low as reasonably achievable. Dictated by Florinda Hernandez MD @ 09/30/2024 3:34:55 PM (Electronically Signed)
--- NOTE | 2024-09-30 14:03 | CRLHL7_ITS ---
For Patients: As a result of the Century Cures Act, medical imaging exams and procedure reports are released immediately into your electronic medical record. You may view this report before your referring provider. If you have questions, please contact your health care provider. CLINICAL HISTORY: Headache, neck pain. TECHNIQUE: Standard helical CT image acquisition through the head following the administration of intravenous contrast was performed. 3D and MIP reconstructions were performed at a separate workstation and permanently archived. COMPARISON: None available. FINDINGS: Intracranial atherosclerotic disease without proximal large vessel occlusion or flow-limiting luminal stenosis. No evidence of cerebral aneurysm. No findings to suggest an arterial-venous shunting lesion. IMPRESSION: No intracranial proximal large vessel occlusion, flow-limiting luminal stenosis, or cerebral aneurysm. Please note that all CT scans at this facility use dose modulation, iterative reconstruction, and/or weight-based dosing when appropriate to reduce radiation dose to as low as reasonably achievable. Dictated by Renato Webber MD @ 10/01/2024 8:02:35 AM (Electronically Signed)
--- NOTE | 2024-09-30 14:03 | CRLHL7_ITS ---
For Patients: As a result of the Century Cures Act, medical imaging exams and procedure reports are released immediately into your electronic medical record. You may view this report before your referring provider. If you have questions, please contact your health care provider. INDICATION: Headache and neck pain. COMPARISON: None available. TECHNIQUE: CTA neck with contrast bolus tracking, 3D angiographic rendering using maximum intensity projection (MIP) and images permanently archived. FINDINGS: The origins of the great vessels are patent. There is carotid atherosclerosis bilaterally. There is atherosclerotic plaque in the proximal right ICA resulting in a mild (<50%) stenosis by NASCET criteria. No significant stenosis of the proximal left ICA. No significant stenosis of right vertebral artery. There is a moderate left vertebral artery origin stenosis. 7mm pulmonary nodule in the left upper lobe, stable since 12/29/2023. IMPRESSION: 1. mild (<50%) stenosis of the proximal right ICA by NASCET criteria. 2. Moderate left vertebral artery origin stenosis. Please note that all CT scans at this facility use dose modulation, iterative reconstruction, and/or weight-based dosing when appropriate to reduce radiation dose to as low as reasonably achievable. Dictated by Renato Webber MD @ 10/01/2024 7:59:23 AM (Electronically Signed)
[2024-09-30 14:21] LABS: Lactate* 0.7 mmol/L (0.5-1.9)
[2024-09-30 14:27] LABS: Basophils Percent Auto 1.1 % (0.0-3.0); Eosinophils Percent Auto 1.3 % (0.0-7.0); Hematocrit 40.4 % (33.0-51.0); Hemoglobin* 13.4 gm/dL (12.0-16.0); Immature Granulocytes Pct Auto 0.3 %; Mean Corpuscular HGB Conc 33 gm/dL (32-36); Mean Corpuscular Hemoglobin 33 pg (26-34); Mean Corpuscular Volume 99 fL (80-100); Monocytes Percent Auto 6.7 % (0.0-11.0); Neutrophils Percent Auto 55.6 % (42.0-72.0); Platelet Count* 204 K/uL (140-440); RDW Coefficient of Variation % 12.8 % (11.5-15.5); White Blood Count* 3.71 K/uL (4.50-11.00)
[2024-09-30] MEDS: fentaNYL 100 MCG/2 ML inj 50 MCG IVP (14:32)
[2024-09-30 14:35] LABS: Slide Review Reflex No
[2024-09-30 14:40] LABS: INR 0.93 (0.91-1.10); Prothrombin Time 13.3 Seconds
[2024-09-30 14:42] LABS: Mono Screen* Negative (Negative)
[2024-09-30 14:47] LABS: Albumin* 3.9 g/dL (3.3-5.0); Chloride* 104 mmol/L (96-114)
[2024-09-30 14:48] LABS: Potassium* 3.5 mmol/L (3.6-5.1); Sodium* 139 mmol/L (135-149)
[2024-09-30 14:50] LABS: Alanine Aminotransferase* 16 U/L (4-35); Alkaline Phosphatase* 86 U/L (40-150); Anion Gap 5 mEq/L (7-15); Aspartate Amino Transferase* 25 U/L (12-35); Bilirubin Direct* 0.1 mg/dL (0.0-0.5); Bilirubin Total* 0.5 mg/dL (0.1-1.5); Blood Urea Nitrogen* 13 mg/dL (7-30); Carbon Dioxide* 30 mmol/L (20-32); Creatinine* 0.8 mg/dL (0.5-1.5); Estimated Glomerular Filt Rate 78 ml/min; Total Protein* 6.6 g/dL (6.0-8.3)
[2024-09-30 14:51] LABS: Calcium* 10.1 mg/dL (8.4-10.6); Glucose* 82 mg/dL (60-115)
[2024-09-30 14:56] LABS: C Reactive Protein* < 0.5 mg/dL (0.5-1.0)
[2024-09-30 15:03] LABS: Troponin I* < 0.01 ng/mL (0.01-0.04)
--- NOTE | 2024-09-30 15:23 | ED.GENADULT ---
HPI - General Adult General Chief complaint: Neck Injury/Pain Stated complaint: Neck pain Time Seen by Provider: 09/30/24 13:42 Source: patient Mode of arrival: ambulatory Limitations: no limitations History of Present Illness HPI narrative: Patient is a 74-year-old female with a history of hypertension, hypothyroidism, and coronary artery disease, presenting with neck pain. States that her neck felt off for few days and then approximately 3 days ago she looked up quickly and felt sharp pain the back of the neck on both sides of the spine. She states that she has been lying in bed for the majority of the weekend because any movement causes her significant discomfort. She feels very nauseated. She feels a little off balance since this happened. She denies vertiginous symptoms. No vomiting. No fevers or chills. She denies changes in her vision, word-finding difficulty or ringing in her ears. She does feel slightly confused. She states that the pain radiates up the head and into the sides of her head. She has tried NSAIDs, acetaminophen, icing/heat and nothing has helped. Related Data Home Medications ?Medication ?Instructions ?Recorded ?Confirmed levothyroxine 125 mcg tablet 125 mcg PO DAILY 10/18/23 09/30/24 (Euthyrox) lisinopril 40 mg tablet 40 mg PO DAILY 10/18/23 09/30/24 aspirin 81 mg tablet,delayed 81 mg PO DAILY 09/30/24 09/30/24 release metoprolol succinate 25 mg 25 mg PO DAILY 09/30/24 09/30/24 tablet,extended release 24 hr Allergies Allergy/AdvReac Type Severity Reaction Status Date / Time No Known Drug Allergies Allergy Verified 10/18/23 14:04 Review of Systems Status of ROS: Reports: 10 or more systems reviewed and unremarkable except as noted in History and below [facility] Social History Smoking Status: Former smoker How often do you have a drink containing alcohol: 4 or more times a week How many standard drinks containing alcohol do you have on a typical day: 1 or 2 How often do you have six or more drinks on one occasion: Never AUDIT-C Alcohol total score: 4 Non-prescribed substance use: denies use Exam Narrative: Exam Narrative: Well-nourished well-developed patient, appears uncomfortable. Alert and oriented. Answers questions appropriately. Mood and affect are appropriate. Thoughts are goal oriented and rational. No tangential or magical thinking noted. Patient speaks in full sentences without needing to catch her breath. HEENT: Normocephalic atraumatic. Asymmetric pupil on the left secondary to an accident many years ago. Extraocular muscles are intact. Conjunctivae are moist without any icterus noted. Moist mucous membranes. Posterior pharynx is normal. Neck is soft without any lymphadenopathy or thyromegaly. No masses are appreciated. Posterior neck appears normal. She has no tenderness to palpation of the cervical spine. She has full range of motion but does cause some discomfort. She has no significant tenderness with palpation of the paraspinal musculature. Cardiovascular: Heart is regular rate and rhythm S1 and S2 are present. Lungs: Clear to auscultation bilaterally no wheezes rhonchi or rales are appreciated. Skin: Well perfused without any obvious rashes. Strength is 5/5 of the upper and lower extremities. Hand track walker is normal and symmetric. Cranial nerves 3-12 are normal. There is no nystagmus either horizontally or vertically. Gait is normal. Const: Vital Signs, click to edit/add: Vital Signs - 24 hr 09/30/24 13:26 Temperature 96.8 F L Pulse Rate [Pulse Oximeter] 95 Respiratory Rate 16 Blood Pressure [Ri ght Upper Arm] 150/84 H Pulse Oximetry 95 Oxygen Delivery Me thod Room Air Course Course ED Course: Differential diagnoses includes musculoskeletal strain, arthritis of the cervical spine, vertebral artery dissection, discitis, migraine headache, tension headache. Head CT was done and was unremarkable. CTA does not show any evidence of dissection. Does show degenerative disease of the cervical spine with disc height loss at C5-C6. Lab work was unremarkable. No evidence of infection or inflammation. Vital Signs Vital signs: Initial Vital Signs Temperature 96.8 F L 09/30/24 13:26 Temperature Source Temporal Artery Scan 09/30/24 13:26 Pulse Rate 95 09/30/24 13:26 Respiratory Rate 16 09/30/24 13:26 Blood Pressure 150/84 H 09/30/24 13:26 Blood Pressure Mean 106 H 09/30/24 13:26 Blood Pressure Position Sitting 09/30/24 13:26 Pulse Oximetry 95 09/30/24 13:26 Oxygen Delivery Method Room Air 09/30/24 13:26 Vital Signs Temperature 96.8 F L 09/30/24 13:26 Pulse Rate 95 09/30/24 13:26 Respiratory Rate 16 09/30/24 13:26 Blood Pressure 150/84 H 09/30/24 13:26 Pulse Oximetry 95 09/30/24 13:26 Oxygen Delivery Method Room Air 09/30/24 13:26 Temperature 96.8 F L 09/30/24 13:26 Pulse Rate 95 09/30/24 13:26 Respiratory Rate 16 09/30/24 13:26 Blood Pressure 150/84 H 09/30/24 13:26 Pulse Oximetry 95 09/30/24 13:26 Oxygen Delivery Method Room Air 09/30/24 13:26 Medications Administered Medications: Discontinued Medications Generic Name Dose Route Start Last Admin Trade Name Cecily PRN Reason Stop Dose Admin Fentanyl 50 mcg 09/30/24 14:03 09/30/24 14:32 Fentanyl 100 Mcg/2 Ml Inj IVP 09/30/24 14:04 50 mcg ONCE ONE Administration Medical Decision Making MDM Narrative Medical decision making narrative: 74-year-old female with neck pain. Likely due to arthritis and loss of disc height. Right now there is no cervical radiculopathy. We discussed pain management follow-up with primary care. Lab Data Lab results reviewed: Yes I reviewed the patient's lab results Labs: Lab Results 09/30/24 Range/Units 14:13 WBC 3.71 L (4.50-11.00) K/uL RBC 4.10 (4.00-5.20) m/uL Hgb 13.4 (12.0-16.0) gm/dL Hct 40.4 (33.0-51.0) % MCV 99 (80-100) fL MCH 33 (26-34) pg MCHC 33 (32-36) gm/dL RDW Coeff of Nuria 12.8 (11.5-15.5) % Plt Count 204 (140-440) K/uL Neut % (Auto) 55.6 (42.0-72.0) % Lymph % (Auto) 35.0 (20-44) % [place] % (Auto) 6.7 (0.0-11.0) % Eos % (Auto) 1.3 (0.0-7.0) % Baso % (Auto) 1.1 (0.0-3.0) % Neut # (Auto) 2.10 (1.7-7.0) K/uL Lymph # (Auto) 1.30 (0.90-2.90) K/uL [place] # (Auto) 0.20 (0.00-0.90) K/UL Eos # (Auto) 0.00 (0.00-0.50) K/uL Baso # (Auto) 0.00 (0.00-0.30) K/uL Abs Immat Gran (auto) 0.00 (0.00-0.30) K/uL Imm/Tot Granulo (auto) 0.3 % INR 0.93 (0.91-1.10) Sodium 139 (135-149) mmol/L Potassium 3.5 L (3.6-5.1) mmol/L Chloride 104 (96-114) mmol/L Carbon Dioxide 30 (20-32) mmol/L Anion Gap 5 L (7-15) mEq/L BUN 13 (7-30) mg/dL Creatinine 0.8 (0.5-1.5) mg/dL Estimated Creat Clear 51.30 Estimated GFR 78 ml/min Glucose 82 (60-115) mg/dL Lactate 0.7 (0.5-1.9) mmol/L Calcium 10.1 (8.4-10.6) mg/dL Magnesium 2.0 (1.5-2.6) mg/dL Total Bilirubin 0.5 (0.1-1.5) mg/dL Direct Bilirubin 0.1 (0.0-0.5) mg/dL AST 25 (12-35) U/L ALT 16 (4-35) U/L Alkaline Phosphatase 86 (40-150) U/L Troponin I < 0.01 (0.01-0.04) ng/mL C-Reactive Protein < 0.5 L (0.5-1.0) mg/dL Total Protein 6.6 (6.0-8.3) g/dL Albumin 3.9 (3.3-5.0) g/dL Procalcitonin < 0.03 L (<0.50) ng/mL Monoscreen Negative (Negative) Imaging Data CT scan - head: Attestation: I have reviewed the pertinent imaging results. Radiologist's impression: TECHNIQUE: CT head without contrast. COMPARISON: None. FINDINGS: MASS EFFECT AND VENTRICLES: No significant midline shift. The lateral ventricles are symmetric. Basal cisterns patent. No sulcal effacement. The ventricles, cisterns, and other CSF containing spaces are symmetrically prominent secondary to diffuse parenchymal volume loss but are otherwise normal as to shape and position. BRAIN: Diffuse cerebral volume loss. Periventricular and subcortical hypodensities likely secondary to age-related microvascular ischemic changes. No acute infarct or hemorrhage. VASCULAR: No acute abnormalities of the cavernous carotids and vertebral vessels on noncontrast exam. EXTRA-AXIAL: Extra-axial spaces are normal. Metallic fragments along the superior margin of the left sphenoid sinus, which may be related to prior surgery. EXTRA-CRANIAL: No acute calvarial or facial fractures. Sinuses and mastoids are clear. Bilateral lens replacements. IMPRESSION: No acute intracranial abnormality. Head neck CTA: Attestation: I have reviewed the pertinent imaging results. Radiologist's impression: CT chest 12/29/2023 IMPRESSION: CTA head: No large vessel occlusion or significant aneurysm. Tortuous basilar artery. CTA neck: No sign of dissection or critical stenosis. Atherosclerosis of the carotid bulbs. Other: Moderate degenerative disease of the cervical spine, with severe disc height loss at C5-C6. There is a 7 millimeter solid pulmonary nodule in the left upper lobe (5/222), stable since 12/29/2023. Consider repeat CT chest in December 2025 to document 2 years of stability. Unless prominently trunk measuring 3.7 centimeters, which can be seen with pulmonary hypertension. Discharge Plan Discharge Clinical Impression: Acute neck pain Patient Disposition: Home, Self-Care Condition: Stable Instructions: Acute Neck Pain (ED) Additional Instructions: Will be sent home with pain medications today these medications can cause constipation, increased dizziness and risk of fall. Do not operate heavy machinery when you are taking them. Would consider taking MiraLax or stool softener like Colace while you are taking these medications. Recommend you follow-up with your primary care provider for further management. Ten tablets of Percocet sent to [facility]. Prescriptions: No Action aspirin 81 mg tablet,delayed release (DR/EC) 81 mg PO DAILY metoprolol succinate 25 mg tablet extended release 24 hr 25 mg PO DAILY lisinopril 40 mg tablet 40 mg PO DAILY levothyroxine [Euthyrox] 125 mcg tablet 125 mcg PO DAILY Follow Up/Referrals: Katie Perrin DO [Primary Care Provider, Family Practice] Stand Alone Forms: [employer] Info Instructions
[2024-09-30 15:34] LABS: Procalcitonin* < 0.03 ng/mL (<0.50)
[2024-09-30 16:06] VITALS: BP 167/104; PULSE 66; RESP 16; O2SAT 97
== END 2024-09-30 16:10 | disposition home or self-care (01) ==
PROVIDERS: Emergency Provider Family Medicine; PCP Family Medicine
DX: M54.2 Cervicalgia (principal)
CPT/HCPCS: 36415; 70450; 70496; 70498; 80048; 80076; 83605; 83735; 84145; 84484; 85025; 85610; 86140; 86308; 93005; 96374; 99284; 99285; J3010; Q9967